=== PATIENT | male | born 1950 | race Caucasian/White ===

== ENCOUNTER 2017-05-02 14:41 | Day surgery (SDC) | payer OTHER ==
[~2017-05-02] VITALS: Ht 175.3 cm; Wt 88.1 kg
[~2017-05-02 14:41] MED LIST: ACETAMINOPHEN325 M1 PO; ASPIRIN EC81 MG PO; ATROVENT HFA12.9 GM INH; AZITHROMYCIN250 MG PO; CALCIUM CARBON650 MG PO; CEROVITE SENIO1 EACH PO; DEEP SEA44 ML NAS; FISH OIL 1,0001 EAC2 NG; METAMUCIL425 GM PO; METOPROLOL TART25 MG PO; MUCINEX1200 MG PO; MUPIROCIN22 GM TOP; OMEPRAZOLE20 MG PO; PAXIL30 MG PO; PREDNISONE20 MG PO; REFRESH TEARS15 ML OPTH; RISPERDAL1 MG PO; SIMVASTATIN80 MG PO; SYMBICORT 16010.2 GM INH; TERAZOSIN HCL10 MG PO; TOBI 300 M300 MG/5 M INH; VENTOLIN HFA18 GM INH; VITAMIN D1000 UNIT PO
[2017-05-02] MEDS ORDERED: METFORMIN HCL500 MG PO (17:32)
--- NOTE | 2017-05-02 18:12 | NUR ---
REPORT RECIEVED FROM [facility], IN THE E.D. PATIENT TO GO TO SURGERY FOR UMBILICAL HERNIA REPAIR BEFORE COMING TO ROOM 119.
--- NOTE | 2017-05-02 18:35 | EKG ---
[facility] [address] [facility] [place] [address] Signed Normal sinus rhythm Normal ECG No previous ECGs available Confirmed by MARIANA MOSLEY MD ([id number]) on 05/02/2017 6:35:35 PM Electronically Signed By: MARIANA MOSLEY MD 05/02/17 1835 PATIENT NAME: JAYMIE SEGOVIA Electrocardiogram DATE OF : 52 PHYSICIAN: MARIANA MOSLEY MD REPORT #: [id number] REPORT IS CONFIDENTIAL AND NOT TO BE RELEASED WITHOUT AUTHORIZATION
--- NOTE | 2017-05-02 18:59 | NUR ---
05/02/17 1859 Marcella Issa OXYGEN SATURATION 93% ON 6L VIA MASK. PT'S BASELINE O2 SAT IS 93% OXYGEN DOWN TO 4L VIA NC.
--- NOTE | 2017-05-02 20:12 | NUR ---
67YR OLD MALE ADMITTED TO ROOM [facility] FOR UMBILICAL HERNIA REPAIR. PT IS ALERT, ORIENTED, ABLE TO MOVE SELF FROM STRETCHER TO BED. STATES HE HAS NO PAIN EXCEPT WHEN MOVING, DENIES NAUSEA. IN GOOD SPIRITS. ORIENTED TO ROOM AND CALL LIGHT. CAREGIVER SITTING IN ROOM.
--- NOTE | 2017-05-02 20:16 | NUR ---
CAREGIVER HAS GONE TO [facility] TO GET PERSCRIPTION FILLED. PT REMAINS IN GOOD SPIRITS, ATE CUP OF JELLO AND NOW EATING SOME PUDDING. CONT TO DENY NAUSEA, DRINKING SPRITE AND ICE WATER. GRETA LOOMIS ON ABD IS CDI. DENIES PAIN AT REST. DENIES NEED TO VOID YET. CALL LIGHT IN E[place]Y REACH.
--- NOTE | 2017-05-02 20:40 | NUR ---
PHARMACY CLOSED. CALL PLACED TO DR AL AND RECIEVED ORDER FOR TAKE HOME PACK.
--- NOTE | 2017-05-02 20:50 | NUR ---
SBA UP TO BATHROOM TO VOID 400ML LIGHT YELLOW URINE. NO NAUSEA. MIN PAIN WITH ACTIVITY. EBONIE IS CDI. JANEEN CH FROM Narendra AARON.
--- NOTE | 2017-05-02 20:59 | NUR ---
REVEIWED DISCHARGE INSTRUCTIONS WITH PT AND [facility] ENCARNACION. VERBALIZED UNDERSTANDING. PT EAGER TO GO HOME. DISCHARGE TO CAREGIVER AT THIS TIME.
--- NOTE | 2017-05-03 21:15 | OR ---
[facility] [address] [place], [place] [address] Signed DATE OF SERVICE: 05/02/2017 PREOPERATIVE DIAGNOSES: Incarcerated umbilical hernia (1.5 cm). Periumbilical cellulitis (15 cm). POSTOPERATIVE DIAGNOSES: Incarcerated umbilical hernia (1.5 cm). Periumbilical cellulitis (15 cm). PROCEDURE: Primary umbilical herniorrhaphy. ESTIMATED BLOOD LOSS: None. INDICATIONS: Amol is a 67-year-old gentleman who, in 2013, had a laparoscopic converted to an open cholecystectomy for gangrenous gallbladder associated with gallstones. He said long after the gallbladder surgery, there was some swelling in his umbilicus underneath the incision. They really did not cause him any pain, so he chose to ignore it. Then about 2-1/2 days ago, it became more swollen and now there is 15 cm of surrounding cellulitis. He, therefore, was brought to the emergency room by his caregivers. 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 His white count was normal at 7.6. Other laboratory work unremarkable. I met with Amol in the emergency room and we had a long discussion regarding his umbilical hernia. We discussed primary suture repair versus a mesh repair. Given his cellulitis and the incarcerated omentum, we favored a primary suture repair. He understands expected intraoperative and postoperative course. He does understand there is risk including, but not limited to bleeding, infection, scarring, change in contour of skin, damage to bowel, infection of suture even months or year later as well as recurrent hernias and chronic pain. He had expressed understanding and wished to proceed. PROCEDURE NOTE: Amol was taken into our operating room and placed in the supine position under general endotracheal tube anesthesia. He was given preoperative antibiotics with Rocephin and Flagyl. He was also given subcutaneous heparin. SCDs were utilized. He was then prepped and draped in the usual sterile fashion. We utilized a standard transverse infraumbilical incision and carried it down around the umbilicus bluntly and with the cautery. Sure enough, the hernia sac contained incarcerated omentum. Inside the omentum, there was some very brown dark semi-necrotic omentum, but everything underneath was healthy. It was very simple matter to divide that with the cautery and let the healthy omentum back into the abdomen. We then cleaned all the incarcerated omentum out of the umbilical fascial defect and removed the hernia sac. After this, we closed his umbilical Electronically Signed By: SCHUYLER AL MD 05/03/17 6716 PATIENT NAME: AMOL SEGOVIA OPERATIVE REPORT DATE OF : 52 PHYSICIAN: SCHUYLER AL MD REPORT #: [id number] REPORT IS CONFIDENTIAL AND NOT TO BE RELEASED WITHOUT AUTHORIZATION [facility] [address] [place] [id number] Signed fascial defect transversely with a running #1 Prolene suture. We started on his left side, came across to the right side and back and so the knot is on the left side. Aft e r this, local anesthetic was copiously injected into the entire operative wound. The wound was irrigated and suctioned out until clear. The umbilical skin was held down to midline fascia with an interrupted 2-0 PDS suture. The skin and dermis were reapproximated with interrupted 3-0 subcuticular Monocryl sutures. Dry gauze and tape were then applied. Amol was then awakened from his anesthesia, extubated in the OR, taken to recovery room in stable condition. MD TRENTON Reyes/Halleyl /[id number] cc: Tabitha Velez, WATER INSPECTOR [address] [place] [address] DC Schuyler Al MD Electronically Signed By: SCHUYLER AL MD 05/03/17 2115 PATIENT NAME: AMOL SEGOVIA OPERATIVE REPORT DATE OF : 52 PHYSICIAN: SCHUYLER AL MD REPORT #: [id number] REPORT IS CONFIDENTIAL AND NOT TO BE RELEASED WITHOUT AUTHORIZATION
--- NOTE | 2017-05-03 21:15 | CONS ---
[facility] [address] [place], [place] [address] Signed DATE OF SERVICE: 05/02/2017 REFERRING PHYSICIAN: Dr. Shankar. CHIEF COMPLAINT: Umbilical pain and swelling. HISTORY OF PRESENT ILLNESS: Amol is a 67-year-old gentleman who in 2013 went from a laparoscopic to an open appendectomy for gangrenous gallbladder with gallstones. He said not long afterwards, he noticed some pain at the incision at the umbilicus. However, it never really caused him any additional trouble so he has let it go. He said the last 2 and half days ago though, he has developed increasing pain with surrounding erythema, now out about 15 maybe as far as 20 cm. He lives at a local facility and they brought him here to emergency room for evaluation. He has been seen by the ER physician and gave him Rocephin and Flagyl and I was asked to see my general surgeon tongsman. In the meantime, his labs come back along with his EKG, which shows normal sinus rhythm. PAST MEDICAL HISTORY: COPD, asthma, hypertension, posttraumatic stress disorder in [place] and exposure to Agent [place], history of Qdidz-Oqcejqjgp-Yjvqm syndrome. He has cognitive disorder. He has type 2 diabetes. PAST SURGICAL HISTORY: Laparoscopic converted to an open cholecyst[place] [address] Sierra, an open appendectomy through a right lower quadrant incision, lymph nodes removed from his throat and axilla, and bilateral inguinal hernia repairs in [place], presumably laparoscopic from what he describes. SOCIAL HISTORY: He does not smoke or drink, but he abused drugs in the past. He is single and does not drive. He lives at [facility] in [place], [place]. He goes up to the [facility] in [place], [place] to see Tabitha Velez who is a nurse practitioner. His sister is Paulette Ritchie who lives in [place] at #[phone]. He prefers the local [facility]. FAMILY HISTORY: Mother had celiac disease, diabetes, and ended up with a small bowel obstruction and . Father had his abdominal aortic aneurysm repaired and following the surgery. REVIEW OF SYSTEMS: Amol had 10 systems reviewed. He actually answered pretty well. If indeed, his father had an abdominal aortic aneurysm and his risk is 12 times higher than a general public and he had always been screened with ultrasound. He thinks there is some metal packs on both his groin from the hernia repairs. Electronically Signed By: SCHUYLER AL MD 05/03/17 6022 PATIENT NAME: AMOL SEGOVIA CONSULTATION DATE OF : 52 PHYSICIAN: SCHUYLER AL MD REPORT #: [id number] REPORT IS CONFIDENTIAL AND NOT TO BE RELEASED WITHOUT AUTHORIZATION [facility] [address] [place], [place] [address] Signed ALLERGIES: None. MEDICATIONS: Prednisone 20 mg p.o. daily, guaifenesin, Symbicort, metoprolol, paroxetine, Risperdal, saline nasal spray, terazosin, simvastatin, calcium carbonate, Atrovent, Refresh Tears, Ventolin, Tylenol, mupirocin, Prilosec, multivitamin, Metamucil, fish oil, aspirin and vitamin D. PHYSICAL EXAMINATION: VITAL SIGNS: Blood pressure is 138/86, heart rate 87, respiratory rate 18, temperature is 97.8, he is 93% on 2 L nasal cannula. He is 5 feet 9 inches and 88 kg. GENERAL: Amol is a 67-year-old gentleman who is sitting supine semi-recumbent in his ER bed. One of his caregivers is with him today. He is alert, awake and interactive. He is very calm at the moment. He actually answers pretty well. LUNGS: Generally clear to auscultation bilaterally. HEART: Regular rate and rhythm. ABDOMEN: Soft. He has baseline moderate distention. He clearly has a small incarcerated umbilical hernia with about 15 cm of surrounding erythema. LABORATORY DATA: His white blood cell count is 7.6, hemoglobin 14, neutrophils 69, platelets 218. His BUN 20, creatinine 1.1, glucose 105, urinalysis negative. Liver function tests negative. Lipase negative. Albumin 4.1. The EKG showed normal sinus rhythm. RADIOGRAPHIC STUDIES: None. ASSESSMENT AND PLAN: Amol is a 67-year-old gentleman who presents with an voogs-dp-vanamkn incarcerated umbilical hernia. It has become more painful and now he has about 15 cm of surrounding erythema. I explained to Amol the nature of umbilical hernia. He understands the difference between the primary suture repair and a mesh repair. We did express our concerns about infection of Prolene suture and/or mesh. Of course, the recurrence rate is higher without the mesh. He understands there is other risks including but not limited to bleeding, infection, scarring, change in contour the skin, damage to bowel, infection of mesh requiring removal, recurrent hernias and chronic pain. He understands expected intraop and postop course. Hopefully, it is early enough may be he go home either later this evening or in the morning. He will be on antibiotics when he leaves. He has expressed understanding and agrees to the above plan. Schuyler Al MD AB/Danny Electronically Signed By: SCHUYLER AL MD 05/03/17 4304 PATIENT NAME: AMOL SEGOVIA CONSULTATION DATE OF : 52 PHYSICIAN: SCHUYLER LA MD REPORT #: [id number] REPORT IS CONFIDENTIAL AND NOT TO BE RELEASED WITHOUT AUTHORIZATION [facility] [address] [place] [address] Signed /[id number] cc: MD Tabitha Reyes, [facility] Electronically Signed By: SCHUYLER AL MD 05/03/17 2115 PATIENT NAME: AMOL SEGOVIA CONSULTATION DATE OF : 52 PHYSICIAN: SCHUYLER AL MD REPORT #: [id number] REPORT IS CONFIDENTIAL AND NOT TO BE RELEASED WITHOUT AUTHORIZATION
== END 2017-05-02 21:15 | disposition home or self-care (01) ==
LOC: ED 14:41 → MS 14:43 → DS 14:43 → MS 21:15 → DS 21:15 → MS 21:15
PROVIDERS: Colon & Rectal Surgery
PROC: 0WQF0ZZ Repair Abdominal Wall, Open Approach (ICD-10-PCS; principal; 2017-05-02 18:30)
DX: K42.0 Umbilical hernia with obstruction, without gangrene (principal); I10 Essential (primary) hypertension; L03.316 Cellulitis of umbilicus; J44.9 Chronic obstructive pulmonary disease, unspecified; J45.909 Unspecified asthma, uncomplicated; F43.10 Post-traumatic stress disorder, unspecified; I45.6 Pre-excitation syndrome; E11.9 Type 2 diabetes mellitus without complications; F09 Unspecified mental disorder due to known physiological condition; Z87.898 Personal history of other specified conditions; Z57.4 Occupational exposure to toxic agents in agriculture; Z79.82 Long term (current) use of aspirin; Z99.81 Dependence on supplemental oxygen; Z79.84 Long term (current) use of oral hypoglycemic drugs; Z79.51 Long term (current) use of inhaled steroids; Z79.52 Long term (current) use of systemic steroids; Z79.899 Other long term (current) drug therapy
CPT/HCPCS: 00750; 80053; 81001; 83690; 85025; 93005; 93010; 94640; 96365; 96372; 96375; 99285; J0330; J0696; J1644; J1720; J2704; J3010

== ENCOUNTER 2020-03-05 11:01 | Emergency (ER) | payer MEDICARE ==
[~2020-03-05] VITALS: Ht 175.3 cm; Wt 88.1 kg
[~2020-03-05 11:01] MED LIST changes: +METFORMIN HCL500 MG PO
--- OUTSIDE RECORDS SUMMARY | 2020-03-05 11:04 | XMS ---
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 Guidelines Source: [employer] [place] Guidelines Date: 01/04/2020 Care Coordination: Member is currently engaged in [employer] services. If [employer] services are needed contact [facility] at: [place] [phone] [place] [phone] Crisis Line [phone] E.D. VISIT COUNT (12 MO.) 1 [facility] TOTAL 1 NOTE: Visits indicate total known visits. ED/UCC VISIT TRACKING (12 MO.) 03/05/2020 11:02 [facility] OR TYPE: Emergency COMPLAINT: - L HIP PAIN, NON INJURY INPATIENT VISIT TRACKING (12 MO.) No inpatient visits to display in this time frame [email or web address]
[2020-03-05] MEDS ORDERED: CALCIUM CARBON650 MG PO (11:25)
[2020-03-05] MEDS ORDERED: FLOVENT DISKUS50 MCG INH (11:27)
[2020-03-05] MEDS ORDERED: GLIPIZIDE5 MG PO (11:28)
[2020-03-05] MEDS ORDERED: SYMBICORT 16010.2 GM INH (12:47)
[2020-03-05] MEDS ORDERED: TOBRAMYCIN300 MG/5 M INH (12:49)
[2020-03-05] MEDS ORDERED: VITAMIN B-121000 MCG PO (12:50)
[2020-03-05] MEDS ORDERED: DEEP SEA44 ML NAS (12:59)
[2020-03-05] MEDS ORDERED: MUPIROCIN22 GM TOP (13:01)
[2020-03-05] MEDS ORDERED: PIOGLITAZONE HC15 MG PO (13:02)
[2020-03-05] MEDS ORDERED: PREDNISONE20 MG PO (13:10)
== END 2020-03-05 13:24 | disposition home or self-care (01) ==
LOC: ED 11:01
DX: M54.42 Lumbago with sciatica, left side (principal); J44.9 Chronic obstructive pulmonary disease, unspecified; I10 Essential (primary) hypertension; E11.9 Type 2 diabetes mellitus without complications; Z87.891 Personal history of nicotine dependence; Z79.899 Other long term (current) drug therapy; Z79.82 Long term (current) use of aspirin; Z79.84 Long term (current) use of oral hypoglycemic drugs
CPT/HCPCS: 72100; 73502; 99283-25; J7512